=== PATIENT | male | born 1985 | race African-American/Black ===

== ENCOUNTER 2016-06-01 08:11 | Emergency (ER) | payer OTHER | END 2016-06-01 08:23 | disposition home or self-care (01) | LOC: CED 08:11 | DX: S61.452A Open bite of left hand, initial encounter (principal); R03.0 Elevated blood-pressure reading, without diagnosis of hypertension; F17.210 Nicotine dependence, cigarettes, uncomplicated; H40.9 Unspecified glaucoma; Z23 Encounter for immunization; W50.3XXA Accidental bite by another person, initial encounter; Y92.89 Other specified places as the place of occurrence of the external cause | CPT/HCPCS: 90471; 90715; 99283 ==